=== PATIENT | female | born 1965 | race Caucasian/White ===

== ENCOUNTER 2017-11-05 17:05 | Emergency (ER) | payer MEDICARE, MEDICAID ==
[~2017-11-05] VITALS: Ht 157.5 cm; Wt 103.0 kg
[~2017-11-05 17:05] MED LIST: ALBU8.5H8 INH; BUME1TAB4 PO; FURO40TA4 PO; LEVO750T21 PO; OMEP40CA37 PO; SIME125C77 PO
[2017-11-05 17:37] LABS: BASOPHILS % (AUTO) 0.5 % (0-1); EOSINOPHILS # (AUTO) 0.1 X10'3 (0-0.9); EOSINOPHILS % (AUTO) 0.9 % (0-6); HEMATOCRIT 49.2 % (35.0-45.0); LYMPHOCYTES # (AUTO) 2.8 X10'3 (1.1-4.8); MEAN CORPUSCULAR HEMOGLOBIN 30.4 PG (27.0-31.0); MEAN CORPUSCULAR HGB CONC 34.6 % (33.0-36.5); MEAN CORPUSCULAR VOLUME 87.7 FL (78-98); MEAN PLATELET VOLUME 8.4 FL (7.4-10.4); MONOCYTES # (AUTO) 0.5 X10'3 (0-0.9); MONOCYTES % (AUTO) 8.3 % (2-12); NEUTROPHILS # (AUTO) 3.1 X10'3 (1.8-7.7); NEUTROPHILS % (AUTO) 47.3 % (42-75); PLATELET COUNT 243 X10'3 (140-440); RED BLOOD COUNT 5.61 X10'6 (4.20-5.60); RED CELL DISTRIBUTION WIDTH 13.4 % (11.5-14.5); WHITE BLOOD COUNT 6.5 X10'3 (4.5-11.0)
[2017-11-05 17:47] LABS: INR 0.9 INR; PARTIAL THROMBOPLASTIN TIME 27 SECONDS (22-32); PROTHROMBIN TIME 9.8 SECONDS (9.0-12.0)
[2017-11-05 17:52] LABS: ANION GAP 10 (8-16); CHLORIDE 103 MMOL/L (99-107); GLUCOSE 124 MG/DL (70-104); POTASSIUM 3.9 MMOL/L (3.5-5.1); SODIUM 141 MMOL/L (135-145); TOTAL CARBON DIOXIDE 27.7 MMOL/L (24-32)
[2017-11-05 17:53] LABS: ALANINE AMINOTRANSFERASE 25 U/L (12-78); ALBUMIN/GLOBULIN RATIO 1.1 (1.1-1.5); ALKALINE PHOSPHATASE 107 IU/L (46-116); ASPARTATE AMINO TRANSFERASE 17 U/L (10-37); BILIRUBIN,TOTAL 0.3 MG/DL (0.1-1.0); BLOOD UREA NITROGEN 21 MG/DL (7-18); BUN/CREATININE RATIO 17.5 (6.6-38.0); CALCIUM 9.4 MG/DL (8.5-10.1); TOTAL PROTEIN 7.7 G/DL (6.4-8.2); eGFR 48 ML/MIN
[2017-11-05 19:50] LABS: CLARITY,URINE CLEAR (Clear); COLOR,URINE YELLOW (Yellow); GLUCOSE, URINE NEGATIVE (Neg); KETONES,URINE TRACE mg/dl (Neg); LEUKOCYTE ESTERASE ,URINE NEGATIVE (Neg); NITRITES, URINE NEGATIVE (Neg); OCCULT BLOOD,URINE NEGATIVE (Neg); PROTEIN,URINE NEGATIVE (Neg)
[2017-11-05 19:52] LABS: UA COLLECTION TYPE CLN CATCH MIDSTREAM
[2017-11-05 21:25] VITALS: BP 121/77
== END 2017-11-05 21:27 | disposition home or self-care (01) ==
LOC: ER 17:05
DX: R53.83 Other fatigue (principal); I11.0 Hypertensive heart disease with heart failure; I50.9 Heart failure, unspecified; J44.9 Chronic obstructive pulmonary disease, unspecified; Z86.718 Personal history of other venous thrombosis and embolism; Z90.710 Acquired absence of both cervix and uterus; Z88.2 Allergy status to sulfonamides
CPT/HCPCS: 36415; 71045; 80053; 81003; 83605; 84145; 84484; 85025; 85610; 85730; 87040; 87502; 87503; 93005; 99285

== ENCOUNTER 2018-12-05 15:03 | Outpatient (CLI) | payer MEDICARE, MEDICAID ==
[2018-12-05 16:30] LABS: BASOPHILS % (AUTO) 0.5 % (0-1); EOSINOPHILS # (AUTO) 0.1 X10'3 (0-0.9); EOSINOPHILS % (AUTO) 1.2 % (0-6); HEMATOCRIT 47.7 % (35.0-45.0); HEMOGLOBIN 16.3 g/dl (12.0-16.0); LYMPHOCYTES # (AUTO) 2.5 X10'3 (1.1-4.8); LYMPHOCYTES % (AUTO) 33.4 % (21-51); MEAN CORPUSCULAR HEMOGLOBIN 30.6 PG (27.0-31.0); MEAN CORPUSCULAR HGB CONC 34.2 g/dL (33.0-36.5); MEAN CORPUSCULAR VOLUME 89.5 FL (78-98); MEAN PLATELET VOLUME 8.9 FL (7.4-10.4); MONOCYTES # (AUTO) 0.4 X10'3 (0-0.9); MONOCYTES % (AUTO) 5.5 % (2-12); NEUTROPHILS # (AUTO) 4.4 X10'3 (1.8-7.7); NEUTROPHILS % (AUTO) 59.4 % (42-75); PLATELET COUNT 227 X10'3 (140-440); RED BLOOD COUNT 5.32 X10'6 (4.20-5.60); RED CELL DISTRIBUTION WIDTH 13.7 % (11.5-14.5); WHITE BLOOD COUNT 7.3 X10'3 (4.5-11.0)
[2018-12-05 17:34] LABS: ALBUMIN 3.9 G/DL (3.4-5.0); ANION GAP 10 (8-16); BLOOD UREA NITROGEN 17 MG/DL (7-18); BUN/CREATININE RATIO 17.7 (6.6-38.0); CALCIUM 9.1 MG/DL (8.5-10.1); CHLORIDE 102 MMOL/L (99-107); CREATININE 0.96 MG/DL (0.40-0.90); GLUCOSE 102 MG/DL (70-104); POTASSIUM 3.9 MMOL/L (3.5-5.1); SODIUM 141 MMOL/L (135-145); TOTAL CARBON DIOXIDE 28.8 MMOL/L (24-32); eGFR 62 ML/MIN
== END 2018-12-05 23:59 | disposition home or self-care (01) ==
LOC: LAB 15:03
PROVIDERS: ATTEND Physician Assistant Medical
DX: I50.30 Unspecified diastolic (congestive) heart failure (principal); R06.00 Dyspnea, unspecified; R40.4 Transient alteration of awareness; R06.02 Shortness of breath; J44.9 Chronic obstructive pulmonary disease, unspecified; Z90.710 Acquired absence of both cervix and uterus; Z88.2 Allergy status to sulfonamides; Z91.040 Latex allergy status; Z88.1 Allergy status to other antibiotic agents; Z91.048 Other nonmedicinal substance allergy status
CPT/HCPCS: 36415; 80048; 83880; 84439; 84443; 84480; 85025

== ENCOUNTER 2019-10-06 19:24 | Emergency (ER) | payer MEDICARE, MEDICAID ==
[~2019-10-06] VITALS: Ht 152.4 cm; Wt 107.0 kg
[~2019-10-06 19:24] MED LIST changes: -BUME1TAB4 PO; +BUME1TAB8 PO; +OMEP40CA13 PO; -OMEP40CA37 PO
[2019-10-06 20:03] LABS: URINE HCG NEGATIVE (NEG)
[2019-10-06 20:08] LABS: CLARITY,URINE CLEAR (Clear); COLOR,URINE YELLOW (Yellow); GLUCOSE, URINE NEGATIVE (Neg); KETONES,URINE TRACE mg/dl (Neg); LEUKOCYTE ESTERASE ,URINE NEGATIVE (Neg); NITRITES, URINE NEGATIVE (Neg); OCCULT BLOOD,URINE NEGATIVE (Neg); PROTEIN,URINE 30 mg/dl (Neg)
[2019-10-06 20:09] LABS: BASOPHILS # (AUTO) 0.1 X10'3 (0-0.2); BASOPHILS % (AUTO) 0.6 % (0-1); EOSINOPHILS % (AUTO) 0.2 % (0-6); HEMATOCRIT 46.3 % (35.0-45.0); HEMOGLOBIN 16.1 g/dl (12.0-16.0); LYMPHOCYTES % (AUTO) 26.1 % (21-51); MEAN CORPUSCULAR HEMOGLOBIN 31.1 PG (27.0-31.0); MEAN CORPUSCULAR HGB CONC 34.9 g/dL (33.0-36.5); MEAN CORPUSCULAR VOLUME 89.2 FL (78-98); MEAN PLATELET VOLUME 8.5 FL (7.4-10.4); MONOCYTES # (AUTO) 0.9 X10'3 (0-0.9); MONOCYTES % (AUTO) 7.4 % (2-12); NEUTROPHILS # (AUTO) 7.7 X10'3 (1.8-7.7); NEUTROPHILS % (AUTO) 65.7 % (42-75); PLATELET COUNT 239 X10'3 (140-440); RED BLOOD COUNT 5.19 X10'6 (4.20-5.60); RED CELL DISTRIBUTION WIDTH 13.5 % (11.5-14.5); WHITE BLOOD COUNT 11.7 X10'3 (4.5-11.0)
[2019-10-06] MEDS ORDERED: normal saline 1000ML IV soln IVB ONE (20:10)
[2019-10-06] MEDS ORDERED: ondansetron/PF 4mg/2ml inj IV ONE (20:10)
[2019-10-06 20:17] LABS: UA COLLECTION TYPE CLN CATCH MIDSTREAM
[2019-10-06 20:18] LABS: BACTERIA,URINE FEW /HPF (Neg); MUCUS STRANDS MODERATE /LPF (Neg); RBC,URINE NONE SEEN /HPF (0-2); SQUAMOUS EPITHELIAL CELL,UR FEW /LPF (FEW); WBC,URINE NONE SEEN /HPF (0-4)
[2019-10-06 20:22] LABS: ALANINE AMINOTRANSFERASE 19 U/L (12-78); ALBUMIN 3.6 G/DL (3.4-5.0); ALBUMIN/GLOBULIN RATIO 0.9 (1.1-1.5); ALKALINE PHOSPHATASE 85 IU/L (46-116); ANION GAP 7 (8-16); ASPARTATE AMINO TRANSFERASE 13 U/L (10-37); BILIRUBIN,TOTAL 0.9 MG/DL (0.1-1.0); BLOOD UREA NITROGEN 17 MG/DL (7-18); CALCIUM 8.9 MG/DL (8.5-10.1); CHLORIDE 99 MMOL/L (99-107); CREATININE 1.06 MG/DL (0.40-0.90); GLUCOSE 96 MG/DL (70-104); LIPASE 86 U/L (73-393); POTASSIUM 3.7 MMOL/L (3.5-5.1); SODIUM 136 MMOL/L (135-145); TOTAL CARBON DIOXIDE 29.7 MMOL/L (24-32); TOTAL PROTEIN 7.5 G/DL (6.4-8.2); eGFR 55 ML/MIN
[2019-10-06 20:39] VITALS: BP 119/76
[2019-10-06] MEDS ORDERED: METR500T PO (20:51)
[2019-10-06] MEDS ORDERED: CIPR-259 PO (20:51)
== END 2019-10-06 21:21 | disposition home or self-care (01) ==
LOC: ER 19:25
DX: K57.32 Diverticulitis of large intestine without perforation or abscess without bleeding (principal); K52.9 Noninfective gastroenteritis and colitis, unspecified; I50.9 Heart failure, unspecified; I11.0 Hypertensive heart disease with heart failure; J44.9 Chronic obstructive pulmonary disease, unspecified; Z86.718 Personal history of other venous thrombosis and embolism; Z90.710 Acquired absence of both cervix and uterus; Z98.890 Other specified postprocedural states; Z88.2 Allergy status to sulfonamides; Z88.1 Allergy status to other antibiotic agents; Z91.040 Latex allergy status; Z91.048 Other nonmedicinal substance allergy status; Z79.2 Long term (current) use of antibiotics; Z79.899 Other long term (current) drug therapy
CPT/HCPCS: 36415; 74176; 80053; 81001; 81025; 83690; 85025; 96374; 99284; J2405; J7030

== ENCOUNTER 2020-02-05 15:36 | Emergency (ER) | payer MEDICARE, OTHER ==
[~2020-02-05] VITALS: Ht 154.9 cm; Wt 103.5 kg
[2020-02-05 16:11] LABS: BASOPHILS # (AUTO) 0.1 X10'3 (0-0.2); BASOPHILS % (AUTO) 0.8 % (0-1); EOSINOPHILS # (AUTO) 0.1 X10'3 (0-0.9); EOSINOPHILS % (AUTO) 1.5 % (0-6); HEMATOCRIT 47.2 % (35.0-45.0); HEMOGLOBIN 15.6 g/dl (12.0-16.0); LYMPHOCYTES # (AUTO) 2.4 X10'3 (1.1-4.8); LYMPHOCYTES % (AUTO) 40.1 % (21-51); MEAN CORPUSCULAR HEMOGLOBIN 29.9 PG (27.0-31.0); MEAN CORPUSCULAR HGB CONC 33.1 g/dL (33.0-36.5); MEAN CORPUSCULAR VOLUME 90.4 FL (78-98); MEAN PLATELET VOLUME 8.5 FL (7.4-10.4); MONOCYTES # (AUTO) 0.4 X10'3 (0-0.9); MONOCYTES % (AUTO) 7.4 % (2-12); NEUTROPHILS % (AUTO) 50.2 % (42-75); PLATELET COUNT 273 X10'3 (140-440); RED BLOOD COUNT 5.22 X10'6 (4.20-5.60); RED CELL DISTRIBUTION WIDTH 14.3 % (11.5-14.5); WHITE BLOOD COUNT 6.1 X10'3 (4.5-11.0)
[2020-02-05 16:12] LABS: URINE HCG NEGATIVE (NEG)
[2020-02-05 16:15] LABS: CLARITY,URINE CLEAR (Clear); COLOR,URINE YELLOW (Yellow); GLUCOSE, URINE NEGATIVE (Neg); KETONES,URINE NEGATIVE (Neg); LEUKOCYTE ESTERASE ,URINE NEGATIVE (Neg); NITRITES, URINE NEGATIVE (Neg); OCCULT BLOOD,URINE NEGATIVE (Neg); PH,URINE 7.5 (4.8-8.0); PROTEIN,URINE NEGATIVE (Neg); UROBILINOGEN,URINE 0.2 E.U/dL (0.2-1.0)
[2020-02-05 16:20] LABS: ALANINE AMINOTRANSFERASE 17 U/L (12-78); ALBUMIN 3.6 G/DL (3.4-5.0); ALKALINE PHOSPHATASE 89 IU/L (46-116); ANION GAP 5 (8-16); ASPARTATE AMINO TRANSFERASE 14 U/L (10-37); BILIRUBIN,TOTAL 0.3 MG/DL (0.1-1.0); BLOOD UREA NITROGEN 13 MG/DL (7-18); BUN/CREATININE RATIO 14.8 (6.6-38.0); CALCIUM 8.9 MG/DL (8.5-10.1); CHLORIDE 104 MMOL/L (99-107); CREATININE 0.88 MG/DL (0.40-0.90); GLUCOSE 95 MG/DL (70-104); LIPASE 157 U/L (73-393); POTASSIUM 4.1 MMOL/L (3.5-5.1); SODIUM 140 MMOL/L (135-145); TOTAL CARBON DIOXIDE 30.6 MMOL/L (24-32); TOTAL PROTEIN 7.3 G/DL (6.4-8.2); eGFR 67 ML/MIN
[2020-02-05 16:21] LABS: UA COLLECTION TYPE CLN CATCH MIDSTREAM
--- NOTE | 2020-02-05 16:55 | NUR ---
pt is being evaluated by provider
--- NOTE | 2020-02-05 17:25 | NUR ---
pt is wanting to leave "the CT is just going to show I have diverticulits", Brooke MCCOY at bedside to talk with pt, pt agreed to stay and have vaginal examine, pt moved to TRAFFIC COUNTER room
--- NOTE | 2020-02-05 18:03 | NUR ---
assisted Brooke MCCOY with pelvic examine, pt lester well, wet mount sent to lab
[2020-02-05] MEDS ORDERED: METR-159 PO (18:04)
[2020-02-05] MEDS ORDERED: AZIT250T83 PO (18:04)
[2020-02-05 18:19] VITALS: BP 114/81
== END 2020-02-05 18:22 | disposition home or self-care (01) ==
LOC: ER 15:37
DX: R10.32 Left lower quadrant pain (principal); R10.31 Right lower quadrant pain; I11.0 Hypertensive heart disease with heart failure; I50.9 Heart failure, unspecified; M54.9 Dorsalgia, unspecified; J44.9 Chronic obstructive pulmonary disease, unspecified; Z86.718 Personal history of other venous thrombosis and embolism; Z90.710 Acquired absence of both cervix and uterus; Z98.890 Other specified postprocedural states; Z88.2 Allergy status to sulfonamides; Z79.2 Long term (current) use of antibiotics; Z91.040 Latex allergy status; Z79.899 Other long term (current) drug therapy
CPT/HCPCS: 36415; 80053; 81003; 81025; 83690; 85025; 87210; 99283

== ENCOUNTER 2021-07-11 13:37 | Emergency (ER) | payer MEDICARE ==
[~2021-07-11] VITALS: Ht 154.9 cm; Wt 108.6 kg
[~2021-07-11 13:37] MED LIST changes: +ALBU8.5H17 INH; -ALBU8.5H8 INH; -OMEP40CA13 PO; +OMEP40CA21 PO
[2021-07-11 13:43] VITALS: BP 159/102
[2021-07-11] MEDS ORDERED: PRED20TA PO (15:30)
== END 2021-07-11 15:37 | disposition home or self-care (01) ==
LOC: ER 13:37
DX: M23.91 Unspecified internal derangement of right knee (principal); I11.0 Hypertensive heart disease with heart failure; I50.9 Heart failure, unspecified; J44.9 Chronic obstructive pulmonary disease, unspecified; Z87.01 Personal history of pneumonia (recurrent); Z86.718 Personal history of other venous thrombosis and embolism; Z90.710 Acquired absence of both cervix and uterus; Z98.890 Other specified postprocedural states; Z88.2 Allergy status to sulfonamides; Z88.1 Allergy status to other antibiotic agents; Z91.040 Latex allergy status; Z91.048 Other nonmedicinal substance allergy status; Z79.899 Other long term (current) drug therapy
CPT/HCPCS: 29505; 73564; 99283

== ENCOUNTER 2021-10-27 12:45 | Emergency (ER) | payer MEDICARE, OTHER ==
[~2021-10-27] VITALS: Ht 157.5 cm; Wt 113.6 kg
[2021-10-27] MEDS ORDERED: SOTROVIMAB 500mg injection 500 MG in normal saline 100ml IV soln 100 ML IV ONE (14:20)
[2021-10-27] MEDS ORDERED: ALBU18HF2 INH (15:31)
[2021-10-27 16:40] VITALS: BP 118/94
== END 2021-10-27 16:42 | disposition home or self-care (01) ==
LOC: ER 12:46
DX: U07.1 COVID-19 (principal); I11.0 Hypertensive heart disease with heart failure; I50.9 Heart failure, unspecified; J44.9 Chronic obstructive pulmonary disease, unspecified; F17.200 Nicotine dependence, unspecified, uncomplicated; Z86.718 Personal history of other venous thrombosis and embolism; Z88.1 Allergy status to other antibiotic agents; Z88.2 Allergy status to sulfonamides; Z91.040 Latex allergy status; Z79.899 Other long term (current) drug therapy
CPT/HCPCS: 99284; J3490; M0247; Q0247